=== PATIENT | female | born 1965 | race Caucasian/White ===

== ENCOUNTER 2019-01-13 12:45 | Day surgery (SDC) | payer OTHER ==
[~2019-01-13] VITALS: Ht 154.9 cm; Wt 77.2 kg
[2019-01-13] VITALS (21 sets, daily range): BP systolic 112–161; BP diastolic 61–84; PULSE 62–88; RESP 12–35; Ht 154.9 cm; Wt 77.2 kg
--- NOTE | 2019-01-13 13:43 | HPN ---
Date/Time of Note Date/Time of Note DATE: 01/13/19 TIME: 13:43 Interval H&P Admission Note Pt. seen H&P reviewed: No system changes ANDREY GIRON MD Jan 13, 2019 13:43
[2019-01-13] MEDS ORDERED: ROPIVACAINE 0.5 % 30 ML VIAL ONE (17:58)
[2019-01-13] MEDS ORDERED: CEFAZOLIN 1 GM INJ ONE (18:00)
[2019-01-13] MEDS ORDERED: ONDANSETRON 4 MG INJ ONE (18:00)
[2019-01-13] MEDS ORDERED: PROPOFOL 20 ML ONE (18:14)
[2019-01-13] MEDS ORDERED: LIDOCAINE 100 MG SYRINGE ONE (18:14)
[2019-01-13] MEDS ORDERED: MIDAZOLAM 1 MG/ML 2 ML INJ ONE (18:14)
--- NOTE | 2019-01-13 19:01 | PREAC ---
Date/Time of Note Date/Time of Note DATE: 01/13/19 TIME: 18:58 Anesthesia Eval and Record Evaluation Time Pre-Procedure Interview DATE: 01/13/19 TIME: 18:58 Age 53 Sex female NPO: 8 hrs Preoperative diagnosis Right knee meniscal tear Planned procedure Right knee arthroscopy Past Medical History Past Medical History: Includes Cardio: HTN Surgery & Anesthesia Issues No known issue Meds Anticoagulation: No Beta Dara within 24 hr: No Reason Beta Dara not given: Pt. not on B-Dara No Active Prescriptions or Reported Meds Meds reviewed: Yes Allergies Coded Allergies: No Known Allergy (Unverified , 01/13/19) Allergies Reviewed: No Labs/Studies Labs Reviewed: Reviewed by anesthesiologist test: N/A Pre-procedure Exam Last vitals Vital Signs Date Temp Pulse Resp B/P (MAP) Pulse Ox O2 O2 Flow FiO2 Time Delivery Rate 01/13/19 98.4 75 16 112/61 96 Room Air 13:44 (78) Airway: Adequate mouth opening Mallampati: Mallampati II Teeth: Normal Lung: Normal Heart: Normal ASA Physical Status ASA physical status: 2 Emergency: None Planned Anesthetic General/MAC: LMA Pre-operative Attestations Prior to commencing anesthesia and surgery, the patient was re-evaluated, there was verification of: *The patient's identity *The results of appropriate recent lab work and preoperative vital signs *The above evaluation not changing prior to induction *Anesthetic plan, risk benefits, alternative and complications discussed with patient/family; questions answered; patient/family understands, accepts and wishes to proceed. ANNIE RENDON MD Jan 13, 2019 19:01
--- NOTE | 2019-01-13 19:20 | PAC ---
Date/Time of Note Date/Time of Note DATE: 01/13/19 TIME: 19:20 Post-Anesthesia Notes Post-Anesthesia Note Last documented vital signs Vital Signs Date Temp Pulse Resp B/P (MAP) Pulse Ox O2 O2 Flow FiO2 Time Delivery Rate 01/13/19 98.5 19:18 01/13/19 75 16 112/61 96 Room Air 13:44 (78) Activity: WNL Respiratory function: WNL Cardiovascular function: WNL Mental status: Baseline Pain reasonably controlled: Yes Hydration appropriate: Yes Nausea/Vomiting absent: Yes ANNIE RENDON MD Jan 13, 2019 19:20
--- NOTE | 2019-01-13 19:27 | OPR ---
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 Right knee medial femoral condyle and medial tibial plateau chondromalacia grade 2/3 Operation/Procedure Performed Right knee arthroscopy with partial medial meniscectomy and chondroplasty of the medial, lateral, patella femoral joint Right knee arthroscopy with partial synovectomy Right knee application of platelet rich plasma Surgeon Andrey Giron MD Hose Wrapper None Anesthesia Type: general Anesthesiologist: ANNIE RENDON MD Tourniquet Time: 25 minutes at 250 mmHg Estimated Blood Loss: minimal Transfusion none Specimen None Grafts/Implants Arthrex Giancarlo platelet rich plasma spine at 2% hematocrit Complications none Pt Condition Post Procedure: stable Disposition: PACU Indications INDICATIONS: Patient is a 53-year-old female with ongoing Right knee pain. The patient has complained of having catching, clicking and locking symptoms over the medial aspect of the knee with no relief with physical therapy or anti- inflammatory. Patient has decided to proceed with surgery. RISK NOTE: Patient was explained the risks and benefits of the surgery in the patients quechan language, including not limited to infection, bleeding, loss of limb, loss of life, need for future surgery, risk of anesthesia, risk of injury to the blood vessels and nerves, ligaments or tendons, and risk of deep vein thrombosis. Patient understood these risks and wished to proceed with the surgery. Procedure Description The correct operative site was noted and marked in the preoperative holding area. The patient was then brought back into the operative theater, placed supine on the operative table. Right knee was examined under anesthesia. Range of motion was 0-120. There is no varus or valgus or anterior or posterior instability. There is crepitus noticed at the patellofemoral joint. Tourniquet was then placed on the operative extremity thigh non-sterilely. Patient was then given preoperative antibiotics and then prepped and draped in normal sterile fashion. A timeout was taken and all parties in the room agreed it was the correct patient, correct extremity and correct procedure. Standard anterior lateral portal was created and the knee joint was entered with a blunt tipped trocar, followed by 30 arthroscope. Inflow was achieved with a pump and the pressure maintained at approximately 50 mmHg. A routine arthroscop ic surgery was performed. Suprapatella pouch was unremarkable. The undersurface of the patella showed advanced grade 1 chondromalacia and the central trochlea showed grade II/III chondromalacia The medial and lateral gutters were visualized. There were no loose bodies seen. There is an inflamed hypertrophic plica noted in the anterior and superior medial aspect of the knee. The popliteus hiatus was entered and was normal. Lateral compartment was entered and no chondromalacia was seen on the lateral tibial plateau and femoral condyle. Scope was then brought into the intercondylar notch and an anteromedial portal was made. Shaver was brought into the knee and small amount of fat pad and scar tissue was initially gently debrided. The anterior cruciate ligament was intact and probed. The knee was brought into a valgus position and the medial compartment was entered. The articular surface of the medial femoral condyle and medial tibial plateau revealed diffuse grade 2/3 chondromalacia. There was a degenerative posterior horn medial meniscus tear extending to the midbody that was associated with a radial tear that visualized and debrided gently with a motorized shaver and basket forceps, the posterior horn demonstrated a degenerative tear and fibril lation pattern. The motorized shaver and basket biters were used to smooth the remaining meniscal rim, with care to maintain the peripheral meniscal rim. A probe was introduced and this was carefully probed and was found to be stable. Chondroplasty was then carried out along the weightbearing aspect of the medial femoral condyle, medial tibial plateau, taking care to remove only loose articular cartilage debris and preserve functional articular cartilage. The lateral compartment was reentered and the loose chondral debris was debrided with motorized shaver. Attention was then directed back to the patella femoral joint and a ch ondroplasty was carried out along the weightbearing aspect of the trochlea and undersurface of the patella to again remove loose debris and maintain functional active articular cartilage. The knee was then irrigated with additional 2 L of lactated Ringers solution. Excess fluid was then drained. Range of motion was then attempted showing 0- 125 degrees of motion The portal sites were closed with 4-0 Monocryl and Steri-Strips and dressed with Xeroform and triple antibiotic ointment. The knee was then injected with 20 cc of 0.5% plain ropivacaine followed by 5 cc of platelet rich plasma. A platelet poor soaked sterile dressing was then applied, followed by a compressive bulky soft bandage and an SHIRAZ Wrap. At the completion of the surgery patient had palpable pulses, soft arms and brisk cap refill. The patient tolerated the procedure well and was taken to the PACU without any complications. All sponge and needle counts were correct. Patient will begin pain medicine and 48 hours of antibiotics as well as aspirin 81 mg for the duration of 4 weeks postoperatively ANDREY GIRON MD Jan 13, 2019 19:27
[2019-01-13] MEDS ORDERED: EPHEDrine 25 MG/5 ML SYG IV PRN (19:30)
[2019-01-13] MEDS ORDERED: HYDROmorphONE 1 MG/5 ML IV SYRINGE IV PRN ×3 (19:30)
[2019-01-13] MEDS ORDERED: MEPERIDINE 25 MG INJ IV PRN (19:30)
[2019-01-13] MEDS ORDERED: FENTAnyl 50 MCG/ML VIAL IV PRN ×3 (19:30)
[2019-01-13] MEDS ORDERED: IPRATROPIUM (NEB) 0.5 MG/2.5 ML AMP HHN PRN (19:30)
[2019-01-13] MEDS ORDERED: morphine 2 MG INJ IV PRN (19:30)
[2019-01-13] MEDS ORDERED: LABETALOL HCL 20MG INJ IV PRN (19:30)
[2019-01-13] MEDS ORDERED: ALBUTEROL 0.083% (NEB) 2.5 MG/3 ML AMP HHN PRN (19:30)
[2019-01-13] MEDS ORDERED: KETOROLAC 30 MG INJ IV SCH (19:30)
[2019-01-13] MEDS ORDERED: ONDANSETRON 4 MG INJ IV PRN (19:30)
[2019-01-13] MEDS ORDERED: OXYCODONE/ACETAMINOPHEN (5/325) TAB PO PRN ×2 (19:30)
[2019-01-13] MEDS ORDERED: hydrALAzine 20 MG INJ IV PRN (19:30)
[2019-01-13] MEDS ORDERED: MIDAZOLAM 1 MG/ML 2 ML INJ IV PRN (19:30)
[2019-01-13] MEDS ORDERED: DIPHENHYDRAMINE 50 MG INJ IV PRN (19:30)
[2019-01-13] MEDS ORDERED: TRIMETHOBENZAMIDE 100 MG/ML VIAL IM PRN (19:30)
== END 2019-01-13 21:38 | disposition home or self-care (01) ==
LOC: SDS 12:45
PROVIDERS: ATTEND Orthopaedic Surgery
DX: M23.221 Derangement of posterior horn of medial meniscus due to old tear or injury, right knee (principal); M94.211 Chondromalacia, right shoulder; I10 Essential (primary) hypertension
CPT/HCPCS: 29881; 82306; 84703; J0690; J1170; J1885; J2001; J2250; J2405; J2795; J3010; Z7512; Z7610